=== PATIENT | female | born 1945 | race Hispanic/Latino ===

== ENCOUNTER 2017-08-02 13:36 | Observation (INO) | payer MEDICARE, OTHER ==
[~2017-08-02] VITALS: Ht 157.5 cm; Wt 74.7 kg
[2017-08-02 00:15] VITALS: BP 134/80
[2017-08-02 14:19] LABS: CREATININE 3.1 mg/dL (0.5-1.5); POTASSIUM 3.4 mmol/L (3.5-5.1)
[2017-08-02 14:22] LABS: INR 0.95 (0.85-1.15)
[2017-08-02 14:24] LABS: ALBUMIN 4.5 g/dL (3.5-5.0); BILIRUBIN,TOTAL 0.8 mg/dL (0.2-1.0)
[2017-08-02 14:27] LABS: HEMATOCRIT 43.4 % (36-48); MEAN CORPUSCULAR HEMOGLOBIN 29.2 pg (27.0-33.0); MEAN CORPUSCULAR HGB CONC 34.4 g/dL (32.0-36.0); MEAN CORPUSCULAR VOLUME 84.8 fL (79-99); PLATELET COUNT (AUTO) 248 K/uL (130-400); RED BLOOD CELL COUNT(AUTO) 5.12 MIL/uL (4.00-5.50); RED CELL DISTRIBUTION WIDTH 13.2 % (11.0-15.5); WHITE BLOOD COUNT (AUTO) 15.1 K/uL (4.8-10.8)
[2017-08-02] MEDS ORDERED: SODIUM CHLORIDE 0.9% 1000ML 1,000 ML IV ONE (15:00)
[2017-08-02 15:35] LABS: BAND NEUTROPHILS % (MANUAL) 10 % (0-2); LYMPHOCYTES % (MANUAL) 4 % (22-44); MAN.DIFF COMMENT-IMPRESSION MANUAL DIFFERENTIAL; MONOCYTES % (MANUAL) 3 % (2-9); SEGMENTED NEUTROPHILS % 83 % (40-70)
[2017-08-02 15:36] LABS: PLATELET MORPHOLOGY COMMENT ADEQUATE
[2017-08-02 17:00] VITALS: BP 124/73
[2017-08-02] MEDS ORDERED: POTASSIUM CHLORIDE 10% ELIXIR 20 MEQ/15 ML UDCUP PO PRN (17:00)
[2017-08-02] MEDS ORDERED: ONDANSETRON HCL 4 MG/2 ML VIAL IVP PRN (17:00)
[2017-08-02] MEDS ORDERED: OMEP20CA10 PO (17:43)
[2017-08-02] MEDS ORDERED: LEVO50TA4 PO (17:43)
[2017-08-02] MEDS: DEXTROSE 5 %-0.45 % NACL 1,000 ML IV SCH (17:58)
[2017-08-02] MEDS: POTASSIUM CHLORIDE 20MEQ/100ML 100 ML IV PRN (18:45)
[2017-08-02] MEDS: LIDOCAINE HCL-MPF 1% 2ML VIAL IJ PRN (18:45)
[2017-08-02 19:20] VITALS: BP 132/81
[2017-08-03] MEDS: DEXTROSE 5 %-0.45 % NACL 1,000 ML IV SCH ×3 (00:59→17:42)
[2017-08-03 04:15] VITALS: BP 125/84
[2017-08-03 06:16] LABS: HEMATOCRIT 37.7 % (36-48); MEAN CORPUSCULAR HGB CONC 35.5 g/dL (32.0-36.0); MEAN CORPUSCULAR VOLUME 84.7 fL (79-99); NUCLEATED RED BLOOD CELLS 0.1 % (0.0-0.19); PLATELET COUNT (AUTO) 200 K/uL (130-400); RED BLOOD CELL COUNT(AUTO) 4.46 MIL/uL (4.00-5.50); RED CELL DISTRIBUTION WIDTH 13.3 % (11.0-15.5)
[2017-08-03 06:36] LABS: ALBUMIN 3.6 g/dL (3.5-5.0); BILIRUBIN,TOTAL 0.5 mg/dL (0.2-1.0); CREATININE 2.2 mg/dL (0.5-1.5); TOTAL PROTEIN, SERUM 8.1 g/dL (6.0-8.3)
[2017-08-03 06:39] LABS: POTASSIUM 2.9 mmol/L (3.5-5.1)
[2017-08-03] MEDS: LIDOCAINE HCL-MPF 1% 2ML VIAL IJ PRN (06:43)
[2017-08-03] MEDS: POTASSIUM CHLORIDE 20MEQ/100ML 100 ML IV PRN (06:43)
[2017-08-03] MEDS: LEVOTHYROXINE 50 MCG TABLET PO SCH (06:43)
[2017-08-03] MEDS: POTASSIUM CHLORIDE 20 MEQ ERTAB PO PRN ×4 (06:44→15:54)
[2017-08-03 07:00] VITALS: BP 135/87
[2017-08-03] MEDS: PANTOPRAZOLE SODIUM 40 MG TABLET.DR PO SCH (08:33)
[2017-08-03] MEDS ORDERED: PANTOPRAZOLE 40 MG/VIAL IVP SCH (09:00)
[2017-08-03 11:00] VITALS: BP 119/77
[2017-08-03 15:52] VITALS: BP 140/93
[2017-08-03 19:00] VITALS: BP 135/90
[2017-08-03 23:00] VITALS: BP 129/76
[2017-08-04 03:00] VITALS: BP 134/82
[2017-08-04] MEDS: DEXTROSE 5 %-0.45 % NACL 1,000 ML IV SCH (03:13)
[2017-08-04] MEDS: LEVOTHYROXINE 50 MCG TABLET PO SCH (06:31)
[2017-08-04 07:20] VITALS: BP 124/78
[2017-08-04] MEDS: PANTOPRAZOLE SODIUM 40 MG TABLET.DR PO SCH (09:35)
== END 2017-08-04 10:40 | disposition home or self-care (01) ==
LOC: EDH 13:36 → EDHIP 15:40 → 3CH 16:55
PROVIDERS: ADMIT Internal Medicine; ATTEND Internal Medicine
DX: N17.9 Acute kidney failure, unspecified (principal); E87.6 Hypokalemia; E86.0 Dehydration; I10 Essential (primary) hypertension; K52.9 Noninfective gastroenteritis and colitis, unspecified
CPT/HCPCS: 36415 ×3; 71045; 80053 ×2; 82270; 84132; 85025; 85027; 85610; 85730; 86850; 86900; 86901; 87046; 87205; 87324; 93005; 96361 ×3; 96365; 96366 ×2; 99285; C9113; G0378 ×43; J3480 ×2; J3490 ×2; J7030; J7042 ×5

== ENCOUNTER → 2018-12-07 | Outpatient (CLI) | payer OTHER ==
[~2018-12-07] MED LIST: LEVO50TA4 PO; OMEP-50 PO
== END | disposition home or self-care (01) ==
LOC: OIH 11:13
PROVIDERS: ATTEND Internal Medicine
DX: M50.321 Other cervical disc degeneration at C4-C5 level (principal); I10 Essential (primary) hypertension
CPT/HCPCS: 71046; 72040

== ENCOUNTER 2019-05-14 13:31 | Emergency (ER) | payer OTHER ==
[~2019-05-14 13:31] MED LIST changes: -OMEP-50 PO; +OMEP20CA12 PO
[2019-05-14 14:25] LABS: BASOPHILS % (AUTO) 0.5 % (0.0-5.0); EOSINOPHILS % (AUTO) 2.5 % (0.0-8.0); HEMATOCRIT 32.8 % (36-48); LYMPHOCYTES % (AUTO) 24.5 % (21.0-51.0); MEAN CORPUSCULAR HEMOGLOBIN 29.3 pg (27.0-33.0); MEAN CORPUSCULAR HGB CONC 35.1 g/dL (32.0-36.0); MEAN CORPUSCULAR VOLUME 83.7 fL (79-99); MONOCYTES % (AUTO) 5.3 % (3.0-13.0); NEUTROPHILS % (AUTO) 66.7 % (40.0-77.0); PLATELET COUNT (AUTO) 216 K/uL (130-400); RED BLOOD CELL COUNT(AUTO) 3.92 MIL/uL (4.00-5.50); RED CELL DISTRIBUTION WIDTH 12.6 % (11.0-15.5); WHITE BLOOD COUNT (AUTO) 5.5 K/uL (4.8-10.8)
[2019-05-14 14:40] LABS: CREATININE 1.3 mg/dL (0.5-1.5); POTASSIUM 4.6 mmol/L (3.5-5.1)
[2019-05-14 14:45] LABS: ALBUMIN 4.3 g/dL (3.5-5.0); BILIRUBIN,TOTAL 0.5 mg/dL (0.2-1.0); TOTAL PROTEIN, SERUM 8.2 g/dL (6.0-8.3)
== END 2019-05-14 15:18 | disposition home or self-care (01) ==
LOC: EDH 13:31
DX: R07.89 Other chest pain (principal)
CPT/HCPCS: 36415; 71046; 80053; 84484; 85025; 93005

== ENCOUNTER → 2019-08-01 | Outpatient (CLI) | payer OTHER | END | disposition home or self-care (01) | LOC: OIH 14:26 | PROVIDERS: ATTEND Internal Medicine | DX: M25.552 Pain in left hip (principal) | CPT/HCPCS: 73502 ==

== ENCOUNTER → 2019-12-19 | Outpatient (CLI) | payer OTHER | END | disposition home or self-care (01) | LOC: OIH 09:39 | PROVIDERS: ATTEND Internal Medicine | DX: S32.028A Other fracture of second lumbar vertebra, initial encounter for closed fracture (principal); M43.17 Spondylolisthesis, lumbosacral region; M47.817 Spondylosis without myelopathy or radiculopathy, lumbosacral region; X58.XXXA Exposure to other specified factors, initial encounter; Y93.89 Activity, other specified; Y92.89 Other specified places as the place of occurrence of the external cause; Y99.8 Other external cause status | CPT/HCPCS: 72070; 72100 ==

== ENCOUNTER → 2022-10-06 | Outpatient (CLI) | payer OTHER | END | disposition home or self-care (01) | LOC: RAH 12:25 | PROVIDERS: ATTEND Internal Medicine | DX: S70.01XA Contusion of right hip, initial encounter (principal); M16.11 Unilateral primary osteoarthritis, right hip; X58.XXXA Exposure to other specified factors, initial encounter; Y93.89 Activity, other specified; Y92.89 Other specified places as the place of occurrence of the external cause; Y99.8 Other external cause status | CPT/HCPCS: 72170 ==

== ENCOUNTER → 2023-01-15 | Outpatient (CLI) | payer OTHER | END | disposition home or self-care (01) | LOC: RAH 12:22 | PROVIDERS: ATTEND Internal Medicine | DX: S20.219A Contusion of unspecified front wall of thorax, initial encounter (principal); S40.019A Contusion of unspecified shoulder, initial encounter; M19.09 Primary osteoarthritis, other specified site; M19.011 Primary osteoarthritis, right shoulder; X58.XXXA Exposure to other specified factors, initial encounter; Y93.89 Activity, other specified; Y92.89 Other specified places as the place of occurrence of the external cause; Y99.8 Other external cause status | CPT/HCPCS: 71100; 73030 ==